=== PATIENT | female | born 1995 | race Caucasian/White ===

== ENCOUNTER 2021-06-14 19:16 | Emergency (ER) | payer OTHER ==
[~2021-06-14] VITALS: Ht 162.6 cm; Wt 56.7 kg
[~2021-06-14 19:16] MED LIST: [UNRECOGNIZED DRUG - REMARK]
[2021-06-14 19:28] VITALS: BP 142/88
--- NOTE | 2021-06-14 20:13 | NUR ---
PT AMBULATED TO BED 01.
--- NOTE | 2021-06-14 21:45 | NUR ---
PT CLEARED FOR DISCHARGE. AT TIME OF DISCHARGE PT WAS FOUND IN ROOM. PT LEFT FACILITY WITHOUT DISCHARGE INSTRUCTIONS.
[2021-06-15 11:24] LABS: APPEARANCE,URINE CLEAR (CLEAR); BILIRUBIN,URINE NEGATIVE (NEGATIVE); BLOOD, URINE 1+ (NEGATIVE); COLOR,URINE YELLOW (YELLOW); LEUKOCYTE ESTERASE ,URINE TRACE (NEGATIVE); NITRITE, URINE NEGATIVE (NEGATIVE); UGLUCOSE NEGATIVE (NEGATIVE)
[2021-06-15 14:32] LABS: WBC,URINE 0-5 /HPF (0-5)
== END 2021-06-14 21:45 | disposition home or self-care (01) ==
LOC: MED 19:16
DX: N92.0 Excessive and frequent menstruation with regular cycle (principal); Z79.899 Other long term (current) drug therapy
CPT/HCPCS: 81001; 99283